=== PATIENT | male | born 1980 | race Caucasian/White ===

== ENCOUNTER 2019-05-29 15:54 | Emergency (ER) | payer OTHER ==
[2019-05-29 15:59] VITALS: BP 158/95; PULSE 92; TEMP 98.5; BMI 28.4
--- NOTE | 2019-05-29 16:01 | PDOC ---
Rapid Medical Evaluation Time Seen by Provider: 05/29/19 15:56 Medical Evaluation: 05/29/19 15:58 This patient had a brief in-person evaluation in triage CC: headache and dizziness since this am with tremors States pain at back of head. States compliance with DM medication PE:NAD unlabored breathing neurologically intact orders: labs, fsg This patient will proceed to the ED for further evaluation Discharge Disposition - Diagnosis Headache - Referrals - Patient Instructions - Post Discharge Activity
== END 2019-05-29 19:25 | disposition left against medical advice (07) ==
LOC: JER 15:54
DX: R51 Headache (principal)
CPT/HCPCS: 99281-25